=== PATIENT | male | born 2000 | race Caucasian/White ===

== ENCOUNTER 2024-01-31 18:24 | Emergency (ER) | payer OTHER, SELFPAY ==
[2024-01-31 18:28] VITALS: BP 134/81
[2024-01-31] MEDS: ADACEL 0.5 ML IM (20:29)
--- NOTE | 2024-01-31 20:40 | ED.GENMED ---
History of Present Illness
General
Chief Complaint: Musculo-Skeletal Complaint
Time Seen by Provider: 01/31/24 19:29
History of Present Illness
History of Present Illness:
24-year-old male presents the emergency department for evaluation of right index finger laceration sustained while he was hammering rebar. There is a small laceration to the dorsal aspect of the right index finger PIP joint. No distal
paresthesias. Last tetanus is unknown
Past History
Past History
ED Past Medical History: None
ED Past Surgical History: Tonsilectomy
Social History
Tobacco: Non-smoker
Review of Systems
Review of Systems
Allergies reviewed?: Yes
All Other Systems: ROS reviewed and negative except as documented in HPI and ROS
Phy Exam
Physical Exam
Physical Exam:
GEN: Well appearing, NAD, WDWN
HEENT: Oral mucosa moist, no scleral icterus
Cardiac: Regular rate
Lung: No respiratory distress, no tachypnea
MSK: No gross deformity or injuries
Skin: Good color, no pallor or jaundice, no rashes. 1 cm curvilinear laceration to the dorsal right index finger PIP joint, flap type laceration with no evidence of joint violation or tendon injury, range of motion normal
Neuro: AO x3, moves all extremities freely
Psych: Calm, cooperative
Course
Orders/Labs/Results
Orders:
Orders
01/31/24 19:42
CR Finger(s)/thumb Min 2 Vw Rt Urgent
Comment:
Reason For Exam: R index finger lac
Indicate Which Finger:: Index Finger
01/31/24 19:45
Tetanus/Diphth/Acelpertussis [Adacel] 0.5 ml IM .ONCE ONE
Vital Signs
Initial and Last Documented VS:
Initial Vital Signs
Temp Pulse Resp BP Pulse Ox
98.4 F 78 16 134/81 99
01/31/24 18:28 01/31/24 18:28 01/31/24 18:28 01/31/24 18:28 01/31/24 18:28
Last Documented Vital Signs
Temp Pulse Resp BP Pulse Ox
98.4 F 78 16 134/81 99
01/31/24 18:28 01/31/24 18:28 01/31/24 18:28 01/31/24 18:28 01/31/24 18:28
Procedures
Laceration Closure
Right Second Finger:
Status of Wound: dirty
Size of Wound in cm: 1
Description of Wound Edges: sharp and flap-well vascularized
Preparation: cleaned with soap & water and cleaned with saline
Anesthesia: 1% Lidocaine
Revision/Debridement: routine- no revision
Wound exploration: explored to base- no FB and no tendon involvement
Type of Closure: single layer closure
Skin Closure Material: 5-0 nylon
Number of sutures: 3
MDM/Problems Addressed
MDM/Problems Addressed:
No evidence of tendon laceration, x-ray negative for foreign body or fracture. Sutured at the bedside, discussed return parameters and supportive care
*Critical Care Note
Total Time (30-74mins, 75-104mins- exclusive of procedures): Not Applicable
ED Attending Note
-
Portions of this chart may have been created with voice recognition software.� Occasional wrong word or��sound alike� substitutions may have occurred due to the inherent limitations of voice recognition software.
Discharge Plan
Departure
Patient Disposition: Home (Routine Discharge)
Date of Disposition: 01/31/24
Time of Disposition: 20:42
Patient with high blood pressure during this ER visit?: No
Discharge Problem:
Laceration of right index finger
Instructions: Laceration Repair With Stitches ED
Prescriptions:
No Action
No Current Medications
0
Referrals:
Melanie Ledesma MD [Family Provider] -
Activity Restrictions/Additional Instructions:
Keep dry for the next 24 hours then you may wash gently with soap and water
Manage the dressing daily and wash to keep infection free
Return to the ER if you develop severe pain or redness
Suture removal in 10 days at either urgent care or this can be performed at home if you feel comfortable
Interventions
Interventions:
*Risk Screen - Suicide Last Done: 01/31/24 18:28
*Neglect/Abuse Screening Last Done: 01/31/24 18:28
ED-Musculoskeletal Assessment Last Done: 01/31/24 20:33
Discharge Date and Time
Print Language: DANISH
== END 2024-01-31 20:55 | disposition home or self-care (01) ==
LOC: EMR 18:24
PROVIDERS: EMERGENCY PHYSICIAN Emergency Medicine; FAMILY PHYSICIAN Family Medicine
DX: S61.210A Laceration without foreign body of right index finger without damage to nail, initial encounter (principal); W27.8XXA Contact with other nonpowered hand tool, initial encounter; Z23 Encounter for immunization
CPT/HCPCS: 99283; 90471; 12001; 73140; 90715

== ENCOUNTER → 2024-02-24 07:29 | Outpatient (REF) | payer OTHER, SELFPAY | LOC: EMG 07:29 | PROVIDERS: ATTENDING PHYSICIAN Orthopaedic Surgery Hand Surgery | DX: G56.01 Carpal tunnel syndrome, right upper limb (principal); G56.02 Carpal tunnel syndrome, left upper limb; G56.03 Carpal tunnel syndrome, bilateral upper limbs; R20.0 Anesthesia of skin | CPT/HCPCS: 95886; 95911 ==

== ENCOUNTER → 2024-03-01 13:35 | Outpatient (REF) | payer OTHER, SELFPAY | LOC: MRI 3T 13:35 | PROVIDERS: ATTENDING PHYSICIAN Orthopaedic Surgery Hand Surgery | DX: S43.431A Superior glenoid labrum lesion of right shoulder, initial encounter (principal); Y93.23 Activity, snow (alpine) (downhill) skiing, snowboarding, sledding, tobogganing and snow tubing | CPT/HCPCS: 23350; 73040; 73222 ==